=== PATIENT | female | born 1975 | race Caucasian/White ===

== ENCOUNTER 2018-07-27 09:01 | Emergency (ER) | payer OTHER ==
[~2018-07-27] VITALS: Ht 175.3 cm; Wt 104.3 kg
[2018-07-27] MEDS ORDERED: Nicoderm Cq1 EAC1 TOP (09:40)
[2018-07-27] MEDS ORDERED: NAPR550 PO (09:49)
[2018-07-27] MEDS ORDERED: Amoxicillin500 MG PO (09:49)
[2018-07-27] MEDS ORDERED: PERIDEX15 ML MM (09:49)
== END 2018-07-27 10:11 | disposition home or self-care (01) ==
LOC: ER 09:01
DX: K04.7 Periapical abscess without sinus (principal); Z79.899 Other long term (current) drug therapy
CPT/HCPCS: 64400; 99282-25